=== PATIENT | female | born 1985 | race Caucasian/White ===

== ENCOUNTER 2019-08-15 17:54 | Emergency (ER) | payer OTHER ==
--- NOTE | 2019-08-15 17:57 | ED.ADGEN ---
Past History Past Medical History: Alcoholism, Anxiety Adult General Chief Complaint Chief Complaint ".. I need help.. I feel like I going to go into alcohol withdrawal. ... I was off alcohol.. after in pt. treatment program in [place].. but I had my closest friend in a MVA... and that got me so depressed.. then I started drinking may a liter of vodka a day.. I been try to cut down.. maybe down to 1/2 liter of vodka a day.. but I have started having shaking.. and this intractable vomiting.. so I increased my alcohol again... ".." I think I probably dehy drated... ".. " I don't want any in patient rehab... ".. HPI HPI Patient is a 33 year old female who presents with above hx and complaint of nausea and vomiting when she tries to reduce her alcohol intake. Pt. reports chronic usage of approximately 1 L of vodka a day. Patient states she is down to approximately 1/2 L of vodka today currently. Patient states that time she attempts to reduce intake further developed nausea and vomiting, feels shaky, and has anxiety attacks. Patient denies any history of use of other drugs. Patient does have a history of anxiety disorder and bipolar-like presentations. Patient denies any suicidal ideations. No homicidal ideations. Patient was in inpatient rehabilitation in [place] for 30 days which was helpful in getting off of alcohol. Patient relapsed after the of her friend in a motor vehicle accident.. Patient has had repeated episodes of nausea and vomiting today after attempting to reduce her alcohol. Patient has history of 2 para 2. Patient denies any trauma intake of bad food. No recent travel. Review of Systems Review of Systems Constitutional: Denies fever or chills [] Eyes: Denies change in visual acuity, redness, or eye pain [] HENT: Denies nasal congestion or sore throat [] Respiratory: Denies cough or shortness of breath [] Cardiovascular: No additional information not addressed in HPI [] GI: Complaints of generalized abdominal pain, nausea, vomiting,. Denies bloody stools or diarrhea [] : Denies dysuria or hematuria [] Musculoskeletal: Denies back pain or joint pain [] Integument: Denies rash or skin lesions [] Neurologic: Denies headache, focal weakness or sensory changes . Patient []complaints of shakes or tremors when she attempts at reducing alcohol. Very anxious Endocrine: Denies polyuria or polydipsia [] All other systems were reviewed and found to be within normal limits, except as documented in this note. Family History Family History Noncontributory Current Medications Current Medications Current Medications Medications (Trade) Dose Ordered Sig/Kuldip Start Time Stop Time Status Last Admin Dose Admin Famotidine (Pepcid Vial) 20 mg 1X ONCE 08/15/19 18:30 08/15/19 18:34 DC 08/15/19 19:10 20 MG Folic Acid (FOLIC ACID SYRINGE for ER) 5 mg STK-MED ONCE 08/15/19 19:08 08/15/19 19:08 DC Lactated Ringer's 1,000 ml @ 1,000 mls/hr Q1H 08/15/19 18:29 08/15/19 19:28 DC 08/15/19 20:05 1,000 MLS/HR Lorazepam (Ativan Inj) 2 mg 1X ONCE 08/15/19 20:00 08/15/19 20:01 DC 08/15/19 20:01 2 MG Multivitamins/ Minerals (Infuvite Adult) 10 ml STK-MED ONCE 08/15/19 19:08 08/15/19 19:08 DC Multivitamins/ Minerals 10 ml/ Folic Acid 1 mg/ Thiamine HCl 100 mg/Lactated Ringer's 1,011.2 ml @ 1,011.2 mls/hr 1X ONCE 08/15/19 18:30 08/15/19 19:29 DC 08/15/19 19:17 1,011.2 MLS/HR Ondansetron HCl (Zofran) 8 mg 1X ONCE 08/15/19 18:30 08/15/19 18:34 DC 08/15/19 19:10 8 MG Thiamine HCl (Thiamine Vial) 200 mg STK-MED ONCE 08/15/19 19:08 08/15/19 19:08 DC Allergies Allergies Allergies Coded Allergies Type Severity Reaction Last Updated Verified No Known Drug Allergies 08/15/19 No Physical Exam Physical Exam Constitutional: In acute emotional distress, intoxicated in appearance. [] HENT: Normocephalic, atraumatic, bilateral external ears normal, oropharynx moist, no oral exudates, nose normal. [] Eyes: PERRLA, EOMI, conjunctiva normal, no discharge. [] Neck: Normal range of motion, no tenderness, supple, no stridor. [] Cardiovascular: Tachycardia Heart rate regular rhythm, no murmur [] Lungs & Thorax: Bilateral breath sounds equal apex with few scattered wheezes auscultation [] Abdomen: Bowel sounds normal, soft, mild generalized abdomen tenderness, no masses, no pulsatile masses. [] Skin: Warm, dry, no erythema, no rash. [] Back: No tenderness, no CVA tenderness. [] Extremities: No tenderness, no cyanosis, no clubbing, ROM intact, no edema. [] Neurologic: Alert and oriented X 3, normal motor function, normal sensory function, no focal deficits noted. []Patient is ambulatory without problems. DTRs +2 patella and brachial. Psychologic: Affect very anxious, judgement normal, mood depressed but denies suicidal ideation. Current Patient Data Vital Signs Vital Signs Date Time Temp Pulse Resp B/P (MAP) Pulse Ox O2 Delivery O2 Flow Rate FiO2 08/15/19 18:21 98.7 116 26 96 Room Air Lab Results Laboratory Tests Test 08/15/19 17:10 08/15/19 18:10 08/15/19 18:54 Urine Collection Type Unknown Urine Color Yellow Urine Clarity Hazy Urine pH 5.5 Urine Specific [place] >=1.030 Urine Protein >100 mg/dl (NEG-TRACE) Urine Glucose (UA) Neg mg/dL (NEG) Urine Ketones (Stick) Neg mg/dL (NEG) Urine Blood Trace (NEG) Urine Nitrite Neg (NEG) Urine Bilirubin Neg (NEG) Urine Urobilinogen Dipstick 0.2 mg/dL (0.2 mg/dL) Urine Leukocyte Esterase Neg (NEG) Urine RBC Occ /HPF (0-2) Urine WBC Occ /HPF (0-4) Urine Squamous Epithelial Cells Mod /LPF Urine Bacteria 0 /HPF (0-FEW) Urine Mucus Mod /LPF Urine Opiates Screen Neg (NEG) Urine Methadone Screen Neg (NEG) Urine Barbiturates Neg (NEG) Urine Phencyclidine Screen Neg (NEG) Urine Amphetamine/Methamphetamine Neg (NEG) Urine Benzodiazepines Screen Neg (NEG) Urine Cocaine Screen Neg (NEG) Urine Cannabinoids Screen Neg (NEG) Urine Ethyl Alcohol Pos (NEG) Urine Test Negative (NEG) White Blood Count 5.8 x10^3/uL (4.0-11.0) Red Blood Count 5.03 x10^6/uL (3.50-5.40) Hemoglobin 15.9 g/dL (12.0-15.5) H Hematocrit 46.5 % (36.0-47.0) Mean Corpuscular Volume 93 fL (79-100) Mean Corpuscular Hemoglobin 32 pg (25-35) Mean Corpuscular Hemoglobin Concent 34 g/dL (31-37) Red Cell Distribution Width 13.1 % (11.5-14.5) Platelet Count 239 x10^3/uL (140-400) Neutrophils (%) (Auto) 64 % (31-73) Lymphocytes (%) (Auto) 29 % (24-48) Monocytes (%) (Auto) 7 % (0-9) Eosinophils (%) (Auto) 1 % (0-3) Basophils (%) (Auto) 1 % (0-3) Neutrophils # (Auto) 3.7 x10^3uL (1.8-7.7) Lymphocytes # (Auto) 1.7 x10^3/uL (1.0-4.8) Monocytes # (Auto) 0.4 x10^3/uL (0.0-1.1) Eosinophils # (Auto) 0.0 x10^3/uL (0.0-0.7) Basophils # (Auto) 0.0 x10^3/uL (0.0-0.2) Prothrombin Time 9.5 SEC (9.4-11.4) Prothrombin Time INR 0.9 (0.9-1.1) Activated Partial Thromboplast Time 26 SEC (23-33) Sodium Level 139 mmol/L (136-145) Potassium Level 4.1 mmol/L (3.5-5.1) Chloride Level 101 mmol/L (98-107) Carbon Dioxide Level 24 mmol/L (21-32) Anion Gap 14 (6-14) Blood Urea Nitrogen 7 mg/dL (7-20) Creatinine 0.6 mg/dL (0.6-1.0) Estimated GFR (Cockcroft-Gault) 115.1 Glucose Level 116 mg/dL (70-99) H Calcium Level 8.5 mg/dL (8.5-10.1) Magnesium Level 2.2 mg/dL (1.8-2.4) Total Bilirubin 0.3 mg/dL (0.2-1.0) Direct Bilirubin 0.1 mg/dL (0.0-0.2) Aspartate Amino Transferase (AST) 49 U/L (15-37) H Alanine Aminotransferase (ALT) 42 U/L (14-59) Alkaline Phosphatase 102 U/L (46-116) Creatine Kinase 181 U/L (26-192) Troponin I Quantitative < 0.017 ng/mL (0-0.055) Total Protein 8.8 g/dL (6.4-8.2) H Albumin 4.0 g/dL (3.4-5.0) Amylase Level 38 U/L (25-115) Lipase 192 U/L (73-393) Ethyl Alcohol Level 328 mg/dL (0-10) H EKG EKG My interpretation of EKG shows a sinus rhythm at 85 beats per minute. Some mild left axis deviation. No findings acute STEMI of contralateral changes..[] Radiology/Procedures Radiology/Procedures [][place] [address] IMAGING REPORT Signed PATIENT: DIMITRY MILLARD ACCOUNT: [id number] : 1985 LOCATION: ER AGE: 33 SEX: F EXAM STATUS: REG ER ORD. PHYSICIAN: SERGO THOMPSON MD REASON: n/v, DUE TO ALCOHOLISM, WITHDRAWLS, TREMORS. PROCEDURE: ACUTE ABDOMEN SERIES Exam: Acute abdominal series INDICATION: Nausea and vomiting TECHNIQUE: Frontal view of the chest with upright and supine views of the abdomen Comparisons: None FINDINGS: The cardiomediastinal silhouette and pulmonary vessels are within normal limits. The lung and pleural spaces are clear. Air and stool are noted throughout the colon to level the rectum in a nonobstructive bowel gas pattern. There are a few air-filled nondilated loops of small bowel also noted. No free air. No suspicious masses or calcifications. Visualized osseous structures are unremarkable. IMPRESSION: 1. No acute cardiopulmonary process. 2. Nonobstructive nonspecific bowel gas pattern. Electronically signed by: Franklyn Vizcarra MD (08/15/2019 8:52 PM) [facility] DICTATED AND SIGNED BY: FRANKLYN VIZCARRA MD DATE: 08/15/192051 CC: SERGO THOMPSON MD; PCP,NO ~ Course & Med Decision Making Course & Med Decision Making Pertinent Labs and Imaging studies reviewed. (See chart for details) Patient avoid excessive alcohol intake. Patient take multivitamin. Patient follow-up counseling center this morning. Patient return if any concerns. Patient follow-up primary care. Patient take Zantac 150 mg twice day for gastritis. Must follow-up. [] Final Impression Final Impression 1. Hx of Alcohol Abuse/ Dependence - 2. Nausea and Vomiting[] 3. Anxiety Disorder 4. Depression 5. ETOH = 328 tonight Dragon Disclaimer Dragon Disclaimer This electronic medical record was generated, in whole or in part, using a voice recognition dictation system. Dragon Disclaimer This chart was dictated in whole or in part using Voice Recognition software in a busy, high-work load, and often noisy Emergency Department environment. It may contain unintended and wholly unrecognized errors or omissions. SERGO THOMPSON MD Aug 15, 2019 17:57
[2019-08-15 18:21] VITALS: BP 163/126
[2019-08-15] MEDS ORDERED: IV RINGERS SOLUTION,LACTATED 1,000 ML IV SCH (18:29)
[2019-08-15] MEDS ORDERED: ONDANSETRON PF 4 MG/2 ML VIAL. IVP ONE (18:30)
[2019-08-15] MEDS ORDERED: FAMOTIDINE 20 MG/2 ML VIAL IVP ONE (18:30)
[2019-08-15] MEDS ORDERED: MVI, ADULT NO.4 WITH VIT K 10 ML, FOLIC ACID SYRINGE for ER 1 MG, THIAMINE INJ 100 MG i... IV ONE ×4 (18:30)
[2019-08-15 18:37] LABS: AMPHETAMINE/METHAMPHETAMINE NEG (NEG); BARBITURATES NEG (NEG); BENZODIAZEPINES NEG (NEG); CANNABINOIDS NEG (NEG); COCAINE NEG (NEG); METHADONE NEG (NEG); OPIATES NEG (NEG); PHENCYCLIDINE NEG (NEG)
[2019-08-15 18:39] LABS: U PREG PATIENT NEGATIVE (NEG)
[2019-08-15 18:42] LABS: COLOR,URINE YELLOW
[2019-08-15 18:43] LABS: BACTERIA,URINE 0 /HPF (0-FEW); BILIRUBIN,URINE NEG (NEG); CLARITY,URINE HAZY; GLUCOSE,URINE NEG (NEG); NITRITE,URINE NEG (NEG); RBC,URINE OCC /HPF (0-2); SQUAMOUS EPITHELIAL CELL,UR MOD /LPF; UROBILINOGEN,URINE 0.2 mg/dL (0.2 mg/dL); WBC,URINE OCC /HPF (0-4)
[2019-08-15] MEDS ORDERED: MVI, ADULT NO.4 WITH VIT K 10 ML VIAL IV ONE (19:08)
[2019-08-15] MEDS ORDERED: THIAMINE 200 MG/2 ML VIAL. IV ONE (19:08)
[2019-08-15] MEDS ORDERED: FOLIC ACID 5 MG/ML SYRINGE for ER IV ONE (19:08)
[2019-08-15 19:22] LABS: BASO % 1 % (0-3); EOS % 1 % (0-3); HEMATOCRIT 46.5 % (36.0-47.0); HEMOGLOBIN 15.9 g/dL (12.0-15.5); LYMPH # 1.7 x10^3/uL (1.0-4.8); LYMPH % 29 % (24-48); MEAN CORPUSCULAR HEMOGLOBIN 32 pg (25-35); MEAN CORPUSCULAR HGB CONC 34 g/dL (31-37); MEAN CORPUSCULAR VOLUME 93 fL (79-100); MONO # 0.4 x10^3/uL (0.0-1.1); MONO % 7 % (0-9); NEUT # 3.7 x10^3uL (1.8-7.7); NEUT % 64 % (31-73); PLATELET COUNT 239 x10^3/uL (140-400); RED BLOOD COUNT 5.03 x10^6/uL (3.50-5.40); RED CELL DISTRIBUTION WIDTH 13.1 % (11.5-14.5); WHITE BLOOD COUNT 5.8 x10^3/uL (4.0-11.0)
[2019-08-15 19:31] LABS: CALCIUM 8.5 mg/dL (8.5-10.1); CREATININE 0.6 mg/dL (0.6-1.0); DIRECT BILIRUBIN 0.1 mg/dL (0.0-0.2); GFR 115.1; POTASSIUM 4.1 mmol/L (3.5-5.1); TOTAL BILIRUBIN 0.3 mg/dL (0.2-1.0); TOTAL PROTEIN 8.8 g/dL (6.4-8.2)
--- NOTE | 2019-08-15 20:55 | RAD ---
Exam: Acute abdominal series INDICATION: Nausea and vomiting TECHNIQUE: Frontal view of the chest with upright and supine views of the abdomen Comparisons: None FINDINGS: The cardiomediastinal silhouette and pulmonary vessels are within normal limits. The lung and pleural spaces are clear. Air and stool are noted throughout the colon to level the rectum in a nonobstructive bowel gas pattern. There are a few air-filled nondilated loops of small bowel also noted. No free air. No suspicious masses or calcifications. Visualized osseous structures are unremarkable. IMPRESSION: 1. No acute cardiopulmonary process. 2. Nonobstructive nonspecific bowel gas pattern. Electronically signed by: Franklyn Hancock MD (08/15/2019 8:52 PM) [facility]
--- NOTE | 2019-08-15 21:16 | EKG ---
[address] [address] Test Date: 2019-08-15 Test Time: 20:57:25 Pat Name: DIMITRY MILLARD Department: Room: Gender: F Sales Ambassador: MELCHOR : 1985 Requested By: SERGO THOMPSON Order Number: [id number] Reading MD: Measurements Intervals [place] Rate: 85 P: 0 MO: 138 QRS: -66 QRSD: 98 T: 14 QT: 390 QTc: 464 Interpretive Statements SINUS RHYTHM ABNORMAL LEFT AXIS DEVIATION LOW LIMB LEAD VOLTAGE ABNORMAL ECG RI6.01 No previous ECG available for comparison
[2019-08-15] MEDS ORDERED: RANI-376 PO (22:36)
[2019-08-15] MEDS ORDERED: ONDA8TAB9 PO (22:36)
== END 2019-08-15 23:20 | disposition home or self-care (01) ==
LOC: ER 17:54
DX: F41.9 Anxiety disorder, unspecified (principal); R11.2 Nausea with vomiting, unspecified; F10.20 Alcohol dependence, uncomplicated; F32.9 Major depressive disorder, single episode, unspecified; Y90.8 Blood alcohol level of 240 mg/100 ml or more
CPT/HCPCS: 36415; 74022; 80048; 80076; 80307; 81001; 81025; 82150; 82550; 83690; 83735; 84484; 85025; 85610; 85730; 86705; 86709; 86803; 87340; 93005; 96365; 96375; 99285; G0480; J2060; J2405; J3490; J7120

== ENCOUNTER 2019-09-26 16:45 | Emergency (ER) | payer OTHER ==
[~2019-09-26] VITALS: Ht 170.2 cm; Wt 74.8 kg
[~2019-09-26 16:45] MED LIST: ONDA8TAB9 PO; RANI-376 PO
[2019-09-26 16:58] VITALS: BP 135/45
[2019-09-26] MEDS ORDERED: HYDROcodone/APAP 5/325MG 1 TAB TABLET PO ONE (17:00)
--- NOTE | 2019-09-26 17:03 | PHYS DOC ---
Past History Past Medical History: Alcoholism, Anxiety (REX LINCOLN DO) Past Surgical History: Appendectomy (REX LINCOLN DO) Smoking: Non-smoker Alcohol Use: Heavy Drug Use: None (REX LINCOLN DO) Adult General Chief Complaint Chief Complaint: LOWEREXTREMITY INJURY HPI HPI Patient is a 33-year-old female presents complaining of right lower leg/ankle pain. Proximally an hour prior to arrival, patient was walking in snow, slipped sustaining an inversion mechanism injury of her ankle. She has been unable to walk on the leg since that time. No relief with ibuprofen. There is swelling present in the lower leg. No previous ankle injury. She did not hit her head. There is no numbness or tingling. Symptoms are moderate to severe in intensity. Increased pain with movement.[] (REX LINCOLN DO) Review of Systems Review of Systems Constitutional: Denies fever or chills [] Eyes: Denies change in visual acuity, redness, or eye pain [] HENT: Denies nasal congestion or sore throat [] Respiratory: Denies cough or shortness of breath [] Cardiovascular: No chest pain or palpitations[] GI: Denies abdominal pain, nausea, vomiting, bloody stools or diarrhea [] : Denies dysuria or hematuria [] Musculoskeletal: Denies back pain on a see history of present illness[] Integument: Denies rash or skin lesions [] Neurologic: Denies headache, focal weakness or sensory changes [] Endocrine: Denies polyuria or polydipsia [] All other systems were reviewed and found to be within normal limits, except as documented in this note. (REX LINCOLN DO) Allergies Allergies Allergies Coded Allergies Type Severity Reaction Last Updated Verified No Known Drug Allergies 08/15/19 No (REX LINCOLN DO) Physical Exam Physical Exam Constitutional: Well developed, well nourished, mild discomfort, non-toxic appearance. [] HENT: Normocephalic, atraumatic, bilateral external ears normal, oropharynx moist, no oral exudates, nose normal. [] Eyes: PERRLA, EOMI, conjunctiva normal, no discharge. [] Neck: Normal range of motion, no tenderness, supple, no stridor. [] Cardiovascular:Heart rate regular rhythm, no murmur [] Lungs & Thorax: Bilateral breath sounds clear to auscultation [] Abdomen: Bowel sounds normal, soft, no tenderness, no masses, no pulsatile m asses. [] Skin: Warm, dry, no erythema, no rash. [] Back: No tenderness, no CVA tenderness. [] Extremities: Right lower leg and ankle has swelling towards the medial portion of the lower leg. There is tenderness over the swelling. No bruising is present. She is distally neurovascularly intact. No knee tenderness. A joint above and a joined below were evaluated and were normal. The other 3 extremities show: No tenderness, no cyanosis, no clubbing, ROM intact, no edema. [] Neurologic: Alert and oriented X 3, normal motor function, normal sensory fu nction, no focal deficits noted. [] Psychologic: Affect normal, judgement normal, mood normal. [] (REX LINCOLN DO) EKG EKG [] (REX LINCOLN DO) Radiology/Procedures Radiology/Procedures PROCEDURE: ANKLE RIGHT 3V INDICATION: Trauma COMPARISON: None. IMPRESSION: Right ankle: 3 views obtained. Obliquely oriented fracture of the distal tibial diaphysis with approximately 4 mm of lateral displacement. Right lower le views obtained. The above-described obliquely oriented displaced distal tibia fracture seen on this examination as well. A definite additional fracture is not seen.[] (REX LINCOLN DO) Course & Med Decision Making Course & Med Decision Making Pertinent Labs and Imaging studies reviewed. (See chart for details) Urgency department course: Patient arrived, was placed in bed, and tolerated exam well. She was transported to and from radiology with any complications. Imaging findings were discussed with the patient. She was given pain medicine. Consultation was made initially with orthopedic surgery, Dr. Walker who recommended the patient be transferred to [place] for ORIF in the morning. Consultation was made with the hospitalist service for admission. Dr. Atkinson graciously admitted the patient. Plan was discussed with patient and family who voiced understanding. She was transferred in improved condition. A splint was applied for comfort and immobilization. She was distally neurovascularly intact after splint application. Medical decision making: Patient with a closed fracture of her distal tibia. No evidence of an open fracture. No evidence of neurologic or vascular compromise. She is being transferred for higher level orthopedic care.[] (REX LINCOLN DO) Course & Med Decision Making Did not see this pt.. See Dr. Lincoln chart for information. Was transfer at shift change. (SERGO THOMPSON MD) Dragon Disclaimer Dragon Disclaimer This electronic medical record was generated, in whole or in part, using a voice recognition dictation system. (REX LINCOLN DO) Departure Departure: Impression: Primary Impression: Closed right tibial fracture Disposition: 05 TRANSFER OTHER Condition: IMPROVED Referrals: PCP,NO (PCP) Gerardo Disclaimer This chart was dictated in whole or in part using Voice Recognition software in a busy, high-work load, and often noisy Emergency Department environment. It may contain unintended and wholly unrecognized errors or omissions. (SERGO THOMPSON MD) REX LINCOLN DO Sep 26, 2019 17:03 SERGO THOMPSON MD Sep 27, 2019 00:09
--- NOTE | 2019-09-26 17:48 | RAD ---
INDICATION: Trauma COMPARISON: None. IMPRESSION: Right ankle: 3 views obtained. Obliquely oriented fracture of the distal tibial diaphysis with approximately 4 mm of lateral displacement. Right lower le views obtained. The above-described obliquely oriented displaced distal tibia fracture seen on this examination as well. A definite additional fracture is not seen. Electronically signed by: Andrea Keene MD (09/26/2019 5:45 PM) [facility]
--- NOTE | 2019-09-26 17:48 | RAD ---
INDICATION: Trauma COMPARISON: None. IMPRESSION: Right ankle: 3 views obtained. Obliquely oriented fracture of the distal tibial diaphysis with approximately 4 mm of lateral displacement. Right lower le views obtained. The above-described obliquely oriented displaced distal tibia fracture seen on this examination as well. A definite additional fracture is not seen. Electronically signed by: Andrea Keene MD (09/26/2019 5:45 PM) [facility]
== END 2019-09-26 18:34 | disposition short-term general hospital (02) ==
LOC: ER 16:45
DX: S82.301A Unspecified fracture of lower end of right tibia, initial encounter for closed fracture (principal); F10.20 Alcohol dependence, uncomplicated; F41.9 Anxiety disorder, unspecified; Y90.9 Presence of alcohol in blood, level not specified; X50.9XXA Other and unspecified overexertion or strenuous movements or postures, initial encounter; Y93.01 Activity, walking, marching and hiking; Y92.89 Other specified places as the place of occurrence of the external cause; Y99.8 Other external cause status
CPT/HCPCS: 29515; 73590; 73610; 99285

== ENCOUNTER → 2019-12-27 | Outpatient (CLI) | payer OTHER ==
--- NOTE | 2019-12-27 09:28 | RAD ---
EXAM: Obstetrics sonogram. HISTORY: Size and dates assessment. TECHNIQUE: Sonographic imaging of a gravid uterus was performed. COMPARISON: 09/28/2019. FINDINGS: There is a single intrauterine fetus in cephalic presentation with a normal heart rate of 155 bpm. There is a posterior placenta without evidence of placenta previa. The amniotic fluid index is normal at 13.0 cm. The cervix is not well seen but appears normal in length and closed, measuring 3.4 cm. The biparietal diameter is 3.8 cm, corresponding with 17 weeks and 4 days. The head circumference is 14.2 cm, corresponding with 17 weeks and 4 days. The abdominal circumference is 11.7 cm, corresponding with 17 weeks and 3 days. The femoral length is 2.4 cm, corresponding with 17 weeks and 2 days. The estimated gestational age based on combined ultrasound measurements is 17 weeks and 3 days and the estimated due date is 06/02/2020. The estimated weight is 192 g. The estimated gestational age based on LMP is 17 weeks and 6 days. The facial profile, heart and kidneys are not well assessed due to early gestational age. There is a three-vessel umbilical cord with normal insertion. The stomach, brain, spine and extremities are unremarkable. IMPRESSION: 1. Single intrauterine fetus with a normal heart rate and gestational age based on ultrasound measurements of 17 weeks and 3 days. The estimated gestational age based on LMP is 17 weeks and 6 days. 2. Suboptimal evaluation of the facial profile, heart and kidneys due to early gestational age. Follow-up evaluation at approximately 20 weeks gestation can be performed to complete an otherwise unremarkable anatomy survey. Electronically signed by: Mae Toure MD (12/27/2019 9:25 AM) [id number]
== END ==
LOC: US 07:41
PROVIDERS: ATTEND Obstetrics & Gynecology
DX: O26.842 Uterine size-date discrepancy, second trimester (principal); Z3A.17 17 weeks gestation of pregnancy
CPT/HCPCS: 76805

== ENCOUNTER 2021-04-19 07:29 | Emergency (ER) | payer OTHER ==
[~2021-04-19] VITALS: Ht 170.2 cm; Wt 70.4 kg
[2021-04-19 07:34] VITALS: BP 134/94
[2021-04-19] MEDS ORDERED: IV NORMAL SALINE 1,000ML 1,000 ML IV ONE (08:00)
[2021-04-19 08:31] LABS: BASO % 1 % (0-3); EOS # 0.2 x10^3/uL (0.0-0.7); EOS % 4 % (0-3); HEMOGLOBIN 15.3 g/dL (12.0-15.5); LYMPH # 1.4 x10^3/uL (1.0-4.8); LYMPH % 20 % (24-48); MEAN CORPUSCULAR HEMOGLOBIN 33 pg (25-35); MEAN CORPUSCULAR HGB CONC 35 g/dL (31-37); MEAN CORPUSCULAR VOLUME 94 fL (79-100); MONO # 0.7 x10^3/uL (0.0-1.1); MONO % 11 % (0-9); NEUT # 4.4 x10^3uL (1.8-7.7); NEUT % 65 % (31-73); PLATELET COUNT 278 x10^3/uL (140-400); RED BLOOD COUNT 4.69 x10^6/uL (3.50-5.40); WHITE BLOOD COUNT 6.9 x10^3/uL (4.0-11.0)
[2021-04-19 08:37] LABS: BARBITURATES NEG (NEG); BENZODIAZEPINES NEG (NEG); CANNABINOIDS NEG (NEG); COCAINE NEG (NEG); METHADONE NEG (NEG); OPIATES NEG (NEG); PHENCYCLIDINE NEG (NEG)
[2021-04-19 08:39] LABS: CALCIUM 8.8 mg/dL (8.5-10.1); CREATININE 1.1 mg/dL (0.6-1.0); GFR 56.5; POTASSIUM 3.3 mmol/L (3.5-5.1)
[2021-04-19 08:44] LABS: BILIRUBIN,URINE SMALL (NEG); CLARITY,URINE CLEAR; COLOR,URINE YELLOW; GLUCOSE,URINE NEG (NEG); NITRITE,URINE POS (NEG); UROBILINOGEN,URINE 0.2 mg/dL (0.2 mg/dL)
[2021-04-19] MEDS ORDERED: IOHEXOL 300 MG/ML 50 ML VIAL. IV ONE (08:45)
[2021-04-19 08:46] LABS: BACTERIA,URINE MANY /HPF (0-FEW); RBC,URINE OCC /HPF (0-2); SQUAMOUS EPITHELIAL CELL,UR MANY /LPF
[2021-04-19 08:46] LABS: ALBUMIN 3.5 g/dL (3.4-5.0); ALBUMIN/GLOBULIN RATIO 1.1 (1.0-1.7); TOTAL BILIRUBIN 0.7 mg/dL (0.2-1.0); TOTAL PROTEIN 6.8 g/dL (6.4-8.2)
[2021-04-19 08:50] LABS: AMPHETAMINE/METHAMPHETAMINE NEG (NEG)
[2021-04-19] MEDS ORDERED: CONTRAST GIVEN. MC PRN (09:00)
--- NOTE | 2021-04-19 09:13 | RAD ---
Exam Date: 04/19/2021 8:[address] HEAD WITHOUT AND WITH IV CONTRAST Indication: Reason: leg weakness, bilateral leg numbness/tingling x 2 days / Spl. Instructions: / Hi story: . TECHNIQUE: Head CT was performed without and with intravenous contrast. One or more of the followin g dose reduction techniques were utilized: *Automated exposure control (AEC) *Adjustment of mA and/or kV according to patient size *Use of iterative reconstruction technique *CT scan done according to ALARA, or ALARA/IMAGE GENTLY FINDINGS: The ventricles and sulci are normal for the patient's stated age. There is no evidence of acute int racranial hemorrhage, extra-axial collection, mass effect, midline shift, or acute territorial infarc t. No lesion of the skull base or the calvarium is seen. The visualized paranasal sinuses, mastoid ai r cells and orbits are normal in appearance. No abnormal contrast enhancement is seen. IMPRESSION: No evidence for acute intracranial abnormality. Electronically signed by: Arvind Diehl MD (04/19/2021 9:10 AM) [id number]
[2021-04-19] MEDS ORDERED: NITR100C62 PO (09:21)
--- NOTE | 2021-04-19 09:21 | PHYS DOC ---
Past History Past Medical History: Alcoholism Past Surgical History: Smoking: Non-smoker Alcohol Use: Occasionally Drug Use: None General Adult EDM: Chief Complaint: LOWER EXT PAIN HPI: HPI: 35-year-old female presents with bilateral leg "heaviness and tingling". She feels like her legs are heavy and that she could fall over. She feels like she should hold onto something and lean against the wall. She is able to walk. This all started this morning and she has never had symptoms like this before. She is also had some tingling in her hands but this is intermittent. The patient is on an antidepressant, low-dose Zoloft. She has been taking this as prescribed. Patient denies any falls or trauma. She cannot think of any reason why her legs would feel different. No family history of MS. She has no other significant history. Review of Systems: Review of Systems: Constitutional: Denies fever or chills Eyes: Denies change in visual acuity HENT: Denies nasal congestion or sore throat Respiratory: Denies cough or shortness of breath Cardiovascular: Denies chest pain or edema GI: Denies abdominal pain, nausea, vomiting, bloody stools or diarrhea : Denies dysuria Musculoskeletal: Bilateral leg weakness Integument: Denies rash Neurologic: Denies headache, focal weakness or sensory changes Endocrine: Denies polyuria or polydipsia Lymphatic: Denies swollen glands Psychiatric: Denies depression or anxiety Current Medications: Current Meds: Current Medications Medications (Trade) Dose Ordered Sig/Kuldip Start Time Stop Time Status Last Admin Dose Admin Info (Do NOT chart on this entry -- for MONITORING) 1 each PRN DAILY PRN 04/19/21 09:00 04/21/21 08:59 Iohexol (Omnipaque 300 Mg/ml) 50 ml 1X ONCE 04/19/21 08:45 04/19/21 08:50 DC 04/19/21 08:52 50 ML Sodium Chloride 1,000 ml @ 1,000 mls/hr 1X ONCE 04/19/21 08:00 04/19/21 08:59 DC 04/19/21 08:03 1,000 MLS/HR Allergies: Allergies: Allergies Coded Allergies Type Severity Reaction Last Updated Verified No Known Drug Allergies 08/15/19 No Physical Exam: PE: Constitutional: Well developed, well nourished, no acute distress, non-toxic appearance. [] HENT: Normocephalic, atraumatic, bilateral external ears normal, oropharynx moist, no oral exudates, nose normal. [] Eyes: PERRLA, EOMI, conjunctiva normal, no discharge. [] Neck: Normal range of motion, no tenderness, supple, no stridor. [] Cardiovascular: Heart rate regular rhythm, no murmur [] Lungs & Thorax: Bilateral breath sounds clear to auscultation [] Abdomen: Bowel sounds normal, soft, no tenderness, no masses, no pulsatile masses. [] Skin: Warm, dry, no erythema, no rash. [] Back: No tenderness, no CVA tenderness. [] Extremities: No tenderness, no cyanosis, no clubbing, ROM intact, no edema. [] Neurologic: Alert and oriented X 3, normal motor function, normal sensory function, no focal deficits noted. [] Psychologic: Affect normal, judgement normal, mood concerned. [] Current Patient Data: Labs: Laboratory Tests Test 04/19/21 07:58 04/19/21 08:00 04/19/21 08:12 White Blood Count 6.9 x10^3/uL (4.0-11.0) Red Blood Count 4.69 x10^6/uL (3.50-5.40) Hemoglobin 15.3 g/dL (12.0-15.5) Hematocrit 44.0 % (36.0-47.0) Mean Corpuscular Volume 94 fL (79-100) Mean Corpuscular Hemoglobin 33 pg (25-35) Mean Corpuscular Hemoglobin Concent 35 g/dL (31-37) Red Cell Distribution Width 14.0 % (11.5-14.5) Platelet Count 278 x10^3/uL (140-400) Neutrophils (%) (Auto) 65 % (31-73) Lymphocytes (%) (Auto) 20 % (24-48) L Monocytes (%) (Auto) 11 % (0-9) H Eosinophils (%) (Auto) 4 % (0-3) H Basophils (%) (Auto) 1 % (0-3) Neutrophils # (Auto) 4.4 x10^3uL (1.8-7.7) Lymphocytes # (Auto) 1.4 x10^3/uL (1.0-4.8) Monocytes # (Auto) 0.7 x10^3/uL (0.0-1.1) Eosinophils # (Auto) 0.2 x10^3/uL (0.0-0.7) Basophils # (Auto) 0.0 x10^3/uL (0.0-0.2) Sodium Level 142 mmol/L (136-145) Potassium Level 3.3 mmol/L (3.5-5.1) L Chloride Level 103 mmol/L (98-107) Carbon Dioxide Level 28 mmol/L (21-32) Anion Gap 11 (6-14) Blood Urea Nitrogen 4 mg/dL (7-20) L Creatinine 1.1 mg/dL (0.6-1.0) H Estimated GFR (Cockcroft-Gault) 56.5 BUN/Creatinine Ratio 4 (6-20) L Glucose Level 110 mg/dL (70-99) H Calcium Level 8.8 mg/dL (8.5-10.1) Total Bilirubin 0.7 mg/dL (0.2-1.0) Aspartate Amino Transferase (AST) 80 U/L (15-37) H Alanine Aminotransferase (ALT) 40 U/L (14-59) Alkaline Phosphatase 112 U/L (46-116) Total Protein 6.8 g/dL (6.4-8.2) Albumin 3.5 g/dL (3.4-5.0) Albumin/Globulin Ratio 1.1 (1.0-1.7) Urine Collection Type Unknown Urine Color Yellow Urine Clarity Clear Urine pH 7.0 Urine Specific [place] 1.025 Urine Protein 100 mg/dl (NEG-TRACE) Urine Glucose (UA) Neg mg/dL (NEG) Urine Ketones (Stick) Trace mg/dL (NEG) Urine Blood Neg (NEG) Urine Nitrite Pos (NEG) Urine Bilirubin Small (NEG) Urine Urobilinogen Dipstick 0.2 mg/dL (0.2 mg/dL) Urine Leukocyte Esterase Neg (NEG) Urine RBC Occ /HPF (0-2) Urine WBC 1-4 /HPF (0-4) Urine Squamous Epithelial Cells Many /LPF Urine Bacteria Many /HPF (0-FEW) Urine Mucus Mod /LPF Urine Opiates Screen Neg (NEG) Urine Methadone Screen Neg (NEG) Urine Barbiturates Neg (NEG) Urine Phencyclidine Screen Neg (NEG) Urine Amphetamine/Methamphetamine Neg (NEG) Urine Benzodiazepines Screen Neg (NEG) Urine Cocaine Screen Neg (NEG) Urine Cannabinoids Screen Neg (NEG) Urine Ethyl Alcohol Neg (NEG) POC Urine HCG, Qualitative hcg negative (Negative) Vital Signs: Vital Signs Date Time Temp Pulse Resp B/P (MAP) Pulse Ox O2 Delivery O2 Flow Rate FiO2 04/19/21 07:34 97.9 104 16 134/94 96 EKG: EKG: [] Radiology/Procedures: Radiology/Procedures: [] Heart Score: C/O Chest Pain: N/A Risk Factors: Risk Factors: DM, Current or recent (<one month) smoker, HTN, HLP, family history of CAD, obesity. Risk Scores: Score 0 - 3: 2.5% MACE over next 6 weeks - Discharge Home Score 4 - 6: 20.3% MACE over next 6 weeks - Admit for Clinical Observation Score 7 - 10: 72.7% MACE over next 6 weeks - Early Invasive Strategies Course & Med Decision Making: Course & Med Decision Making Pertinent Labs and Imaging studies reviewed. (See chart for details) The patient's labs are unremarkable. Her urine drug screen is negative. Her urinalysis is positive for infection. I will treat her with Macrobid for [address] with and without contrast does not show any acute findings. I do know if the UTI is causing these symptoms. I will treat this and see if it improves her condition. I advised the patient that if this does not get better she should follow-up with her primary care physician and consider neurology consult. She is stable for discharge at this time. [] Gerardo Disclaimer: Gerardo Disclaimer: This electronic medical record was generated, in whole or in part, using a voice recognition dictation system. Departure Departure: Impression: Primary Impression: UTI (urinary tract infection) Qualified Codes: N30.00 - Acute cystitis without hematuria Additional Impression: Lower extremity weakness Qualified Codes: R29.898 - Other symptoms and signs involving the musculoskeletal system Disposition: HOME / SELF CARE / HOMELESS Condition: STABLE Referrals: PCP,NO (PCP) Patient Instructions: Urinary Tract Infection, [id number]-[id number], Weakness, Jysh-bf-[id number] Scripts Nitrofurantoin Monohyd/M-Cryst (MACROBID 100 MG CAPSULE) 100 Mg Capsule 1 CAP PO BID for UTI for 5 Days, #10 CAP 0 Refills Prov: SRI HERRERA DO 04/19/21 SRI HERRERA DO Apr 19, 2021 09:21
[2021-04-19] MEDS ORDERED: POTASSIUM CHLORIDE 20 MEQ TABLET.ER. PO ONE ×2 (09:30→09:36)
== END 2021-04-19 09:42 | disposition home or self-care (01) ==
LOC: ER 07:29
DX: N30.00 Acute cystitis without hematuria (principal); R29.898 Other symptoms and signs involving the musculoskeletal system; F10.20 Alcohol dependence, uncomplicated; Z98.890 Other specified postprocedural states; Y90.9 Presence of alcohol in blood, level not specified
CPT/HCPCS: 36415; 70470; 80053; 80307; 81001; 81025; 85025; 87086; 96374; 99284; J7030; Q9967

== ENCOUNTER 2021-05-18 20:00 | Emergency (ER) | payer OTHER ==
[~2021-05-18] VITALS: Ht 170.2 cm; Wt 70.4 kg
[~2021-05-18 20:00] MED LIST changes: +NITR100C62 PO
--- NOTE | 2021-05-18 20:12 | PHYS DOC ---
Past History Past Medical History: Alcoholism Past Surgical History: Smoking: Non-smoker Alcohol Use: Occasionally Drug Use: None General Adult HPI: HPI: ".. I am just so weak.. I was at for maybe two weeks .. while they tired to figure it out... they thought maybe I had Guillian-Marina Syndrome.. but everything was non conclusive... .. but now I tested + for COVID on Fri.... I just feel really tire, weak, short of breath.. dizzy. not right in my head. .." " I feel like my feet and legs are asleep... like when you sit in a chair too long... " Patient is a 35 year old FEMALE who presents with generalized weakness, bilateral leg heaviness, tingling, fatigue, dizzy, burning, tingly feet , and now dyspnea. Patient had a similar presentation to the emergency department on 04/19/2021. Patient presents today with exacerbation of the symptoms on 04/19/2021. Patient reports had a evaluation at and felt she had developed Guillan - Marina possibility. Patient does have past history of heavy alcohol use. No history of recent trauma. No history immunosuppression. No history of recent travel. Symptoms have been somewhat waxing and waning the last month. There is some association of symptoms be worse when it is hot. Patient is unsure of the work-up she had at . Patient does states she was recently diagnosed positive for Covid on Friday. Patient has never received any recent vaccinations. Patient has somewhat a poor historian and appears frustrated she has not received a confirmed diagnosis or treatment has been effective. Patient does states she received some gammaglobulins while at but they said it may take weeks for them to work.. Review of Systems: Review of Systems: Constitutional: History of subjective fever or chills Eyes: Denies change in visual acuity HENT: Denies nasal congestion or sore throat Respiratory: Denies cough or shortness of breath Cardiovascular: Denies chest pain or edema GI: Denies abdominal pain, nausea, vomiting, bloody stools or diarrhea : Denies dysuria Musculoskeletal: Complains of generalized weakness Integument: Denies rash Neurologic: Denies headache, focal weakness. Complains of generalized weakness and tingling burning sensation in feet Endocrine: Denies polyuria or polydipsia Lymphatic: Denies swollen glands Psychiatric: Denies depression or anxiety Family History: Family History: Noncontributory Current Medications: Current Meds: See nursing for home meds Allergies: Allergies: Allergies Coded Allergies Type Severity Reaction Last Updated Verified No Known Drug Allergies 08/15/19 No Physical Exam: PE: Constitutional: Mild to moderate distress, non-toxic appearance. [] HENT: Normocephalic, atraumatic, bilateral external ears normal, oropharynx moist, no oral exudates, nose normal. [] Eyes: PERRLA, EOMI, conjunctiva normal, no discharge. [] Neck: Normal range of motion, no tenderness, supple, no stridor. [] Cardiovascular:Heart rate regular rhythm, no murmur [] Lungs & Thorax: Bilateral breath sounds to apex with few scattered wheezes auscultation [] Abdomen: Bowel sounds normal, soft, no tenderness, no masses, no pulsatile jatin s. [] Skin: Warm, dry, no erythema, no rash. [] Back: No tenderness, no CVA tenderness. [] Extremities: Tenderness in feet, planes of leg weakness,, no cyanosis, no clubbing, ROM intact, no edema. [] Neurologic: Alert and oriented X 3, moves all extremities on request however reports marked weakness in bilateral lower legs and complaints of burning feet, no focal deficits noted. DTRs +2 patella and brachial Psychologic: Affect anxious, judgement normal, mood depressed. EKG: EKG: My interpretation EKG shows a sinus rhythm at 73 bpm. There is no acute morphology findings. The time of EKG was 2048 hrs. [] Radiology/Procedures: Radiology/Procedures: [][address] [address] IMAGING REPORT Signed PATIENT: DIMITRY MILLARD ACCOUNT: [id number] : 1985 LOCATION: ER AGE: 35 SEX: F EXAM STATUS: REG ER ORD. PHYSICIAN: SERGO THOMPSON MD REASON: FACIAL AND LEG WEAKNESS, CONFUSION PROCEDURE: CT HEAD WO CONTRAST EXAM: CT HEAD WITHOUT CONTRAST. HISTORY: Facial and leg weakness, altered mental status. TECHNIQUE: Computed tomography of the head was performed without intravenous contrast. One or more of the following individualized dose reduction techniques were utilized for this examination: 1. Automated exposure control. 2. Adjustment of the mA and/or kV according to patient size. 3. Use of iterative reconstruction technique. COMPARISON: 05/01/2021. FINDINGS: There is no intracranial hemorrhage. Winkler-white differentiation is preserved. The ventricles are normal in size and position. There are air-fluid levels throughout the visualized paranasal sinuses. The orbits are unremarkable. The temporal bones are unremarkable. The calvarium reveals no suspicious lesions. IMPRESSION: 1. No acute intracranial findings. 2. Diffuse acute appearing sinus disease. Electronically signed by: Josiah Lambert MD (05/18/2021 11:55 PM) [facility] DICTATED AND SIGNED BY: ELLI LAMBERT MD DATE: 05/18/21 3241 CC: SERGO THOMPSON MD; NON,STAFF ~[facility] [address] [place] [address] IMAGING REPORT Signed PATIENT: DIMITRY MILLARD ACCOUNT: [id number] : 1985 LOCATION: ER AGE: 35 SEX: F EXAM STATUS: REG ER ORD. PHYSICIAN: SERGO THOMPSON MD REASON: cp PROCEDURE: CHEST PA & LATERAL INDICATION: Reason: cp / Spl. Instructions: / History: COMPARISON: None. FINDINGS: 2 view of chest obtained. Cardiac silhouette is unremarkable. Mild degenerative changes of the spine. Nodular opacity right upper lung. IMPRESSION: * Nodular opacity in the right upper lung which would most commonly be infectious or inflammatory in a patient of this age but follow-up could be obtained to ensure that this appropriately resolves to exclude neoplastic nodule which would be unlikely unless the patient has a history of neoplasm. Electronically signed by: [place] MD (05/18/2021 11:32 PM) [id number] DICTATED AND SIGNED BY: S[place] KE[place] MD DATE: 05/18/21 7175 CC: SERGO THOMPSON MD; NON,STAFF ~[facility] [address] [address] IMAGING REPORT Signed PATIENT: TRIP COOK ACCOUNT: [id number] : 05/04/1963 LOCATION: ER AGE: 58 SEX: F EXAM STATUS: REG ER ORD. PHYSICIAN: SERGO THOMPSON MD REASON: OMNI 300,75ML IV.OMNI 240,30ML PO.PAIN.HX KIDNEY INFECTION PROCEDURE: CT ABD PELV W/ORAL&IV CONTRAST CT ABDOMEN+PELVIS W History: Reason: OMNI 300,75ML IV.OMNI 240,30ML PO.PAIN.HX KIDNEY INFECTION / Spl. Instructions: / History: Technique: After the administration of intravenous contrast, CT imaging was performed of the abdomen and pelvis. Multiplanar images are reviewed. Exposure: One or more of the following individualized dose reduction techniques were utilized for this examination: 1. Automated exposure control 2. Adjustment of the mA and/or kV according to patient size 3. Use of iterative reconstruction technique. Comparison: August 27, 2020 Findings: Lower chest: No consolidation or pleural effusion. Abdomen and pelvis: Right hepatic lobe hypodensities, unchanged compared to prior. The spleen, adrenal glands, and pancreas are remarkable. Prior cholecystectomy. Biliary ductal dilatation, within normal range for postcholecystectomy state. Patent portal vein. Left parapelvic renal cyst unchanged. No hydronephrosis. No renal calculus. Small right renal hypodensities, likely cysts. Decompressed urinary bladder. Appendix not well seen. No findings to suggest acute appendicitis. No evidence of bowel obstruction. Oral contrast opacifies to the level of the transverse colon. No pathologic lymphadenopathy. No ascites. Prior hysterectomy. Extensive atheromatous plaque throughout the nonaneurysmal abdominal aorta. Bones: Chronic left posterior rib fractures. Multilevel lumbar spondylosis. Impression: 1. No acute abdominal or pelvic pathology. Electronically signed by: Norman Harley DO (05/18/2021 11:35 PM) [facility] DICTATED AND SIGNED BY: NORMAN HARLEY DO DATE: 05/18/21 2328 CC: SERGO THOMPSON MD; KORTNEY CARLOS MD ~MTH0 0 Heart Score: C/O Chest Pain: Yes HEART Score for Chest Pain: HEART Score for Chest Pain Response (Comments) Value History Slighlty/Non-Suspicious 0 ECG Normal 0 Age < 45 0 Risk Factors 1 or 2 Risk Factors 1 Troponin < Normal Limit 0 Total 1 Risk Factors: Risk Factors: DM, Current or recent (<one month) smoker, HTN, HLP, family history of CAD, obesity. Risk Scores: Score 0 - 3: 2.5% MACE over next 6 weeks - Discharge Home Score 4 - 6: 20.3% MACE over next 6 weeks - Admit for Clinical Observation Score 7 - 10: 72.7% MACE over next 6 weeks - Early Invasive Strategies Course & Med Decision Making: Course & Med Decision Making Pertinent Labs and Imaging studies reviewed. (See chart for details) Attempting to get records 2030 hrs. Unable to receive records. Patient reduce her alcohol intake. Patient to keep follow-up at neurology. Patient take Tylenol and ibuprofen as needed for discomfort. Consider spinal tap. Consider further evaluation at neurology. If exacerbation of lower leg weakness occurs when exposed to heat, evaluate for MS. Take a multivitamin with folate. Explained to patient overall peripheral neuropathy may be related to her excessive alcohol use. Must follow up. Impression: 1. 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 Viral Syndrome + COVID Test on 05/15 ( Non - vaccinated) 3. Hx., of Alcohol Abuse- Tonight= 354 4. Elevated [place] 10, and Lymph 51 5. Elevated D-dimer 1.54 6. Elevated Alk. Phos. 130 7. 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 Departure Departure: Referrals: NON,STAFF (PCP) Scripts Fluticasone Propionate (Flonase Allergy Relief) 9.9 Ml [place].susp 2 SPRAYS MISSY DAILY PRN for bid for 30 Days, ML Prov: SERGO THOMPSON MD 05/19/21 Apixaban (ELIQUIS) 5 Mg Tablet 5 MG PO BID for dvt/pe prop, covid for 10 Days, #20 TAB Prov: SERGO THOMPSON MD 05/19/21 Cephalexin (KEFLEX) 750 Mg Capsule 500 MG PO TID for sinusitis for 14 Days, #40 CAP Prov: SERGO THOMPSON MD 05/19/21 Dragkyle Disclaimer This chart was dictated in whole or in part using Voice Recognition software in a busy, high-work load, and often noisy Emergency Department environment. It may contain unintended and wholly unrecognized errors or omissions. SERGO THOMPSON MD May 18, 2021 20:12
[2021-05-18] MEDS ORDERED: IV RINGERS SOLUTION,LACTATED 1,000 ML IV SCH (20:45)
[2021-05-18] MEDS ORDERED: IOHEXOL 350 MG/ML 100 ML VIAL. IV ONE (21:00)
[2021-05-18 21:10] LABS: BASO % 0 % (0-3); EOS % 1 % (0-3); HEMATOCRIT 42.2 % (36.0-47.0); HEMOGLOBIN 14.6 g/dL (12.0-15.5); LYMPH # 2.9 x10^3/uL (1.0-4.8); LYMPH % 51 % (24-48); MEAN CORPUSCULAR HEMOGLOBIN 33 pg (25-35); MEAN CORPUSCULAR HGB CONC 35 g/dL (31-37); MEAN CORPUSCULAR VOLUME 95 fL (79-100); MONO # 0.6 x10^3/uL (0.0-1.1); MONO % 10 % (0-9); NEUT # 2.1 x10^3uL (1.8-7.7); NEUT % 38 % (31-73); PLATELET COUNT 310 x10^3/uL (140-400); RED BLOOD COUNT 4.45 x10^6/uL (3.50-5.40); RED CELL DISTRIBUTION WIDTH 13.5 % (11.5-14.5); WHITE BLOOD COUNT 5.7 x10^3/uL (4.0-11.0)
[2021-05-18] MEDS ORDERED: CONTRAST GIVEN. MC PRN (21:15)
[2021-05-18 21:21] LABS: BILIRUBIN,URINE NEG (NEG); CLARITY,URINE CLEAR; COLOR,URINE STRAW; GLUCOSE,URINE NEG (NEG); NITRITE,URINE NEG (NEG); UROBILINOGEN,URINE 0.2 mg/dL (0.2 mg/dL)
[2021-05-18 21:22] LABS: BACTERIA,URINE 0 /HPF (0-FEW); RBC,URINE 0 /HPF (0-2); SQUAMOUS EPITHELIAL CELL,UR FEW /LPF; WBC,URINE 0 /HPF (0-4)
[2021-05-18 21:37] LABS: BARBITURATES NEG (NEG); BENZODIAZEPINES NEG (NEG); CANNABINOIDS NEG (NEG); COCAINE NEG (NEG); METHADONE NEG (NEG); OPIATES NEG (NEG); PHENCYCLIDINE NEG (NEG)
[2021-05-18 21:38] LABS: AMPHETAMINE/METHAMPHETAMINE NEG (NEG)
[2021-05-18 21:38] LABS: CALCIUM 8.5 mg/dL (8.5-10.1); CREATININE 0.6 mg/dL (0.6-1.0); GFR 113.8
[2021-05-18 21:49] LABS: ALBUMIN 3.4 g/dL (3.4-5.0); DIRECT BILIRUBIN 0.1 mg/dL (0.0-0.2); MAGNESIUM 2.1 mg/dL (1.8-2.4); TOTAL BILIRUBIN 0.3 mg/dL (0.2-1.0); TOTAL PROTEIN 8.5 g/dL (6.4-8.2)
--- NOTE | 2021-05-18 22:49 | EKG ---
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
--- NOTE | 2021-05-18 23:34 | RAD ---
INDICATION: Reason: cp / Spl. Instructions: / History: COMPARISON: None. FINDINGS: 2 view of chest obtained. Cardiac silhouette is unremarkable. Mild degenerative changes of the spine. Nodular opacity right upper lung. IMPRESSION: * Nodular opacity in the right upper lung which would most commonly be infectious or inflammatory in a patient of this age but follow-up could be obtained to ensure that this appropriately resolves to exclude neoplastic nodule which would be unlikely unless the patient has a history of neoplasm. Electronically signed by: Andrea Keene MD (05/18/2021 11:32 PM) [id number]
--- NOTE | 2021-05-18 23:58 | RAD ---
EXAM: CT HEAD WITHOUT CONTRAST. HISTORY: Facial and leg weakness, altered mental status. TECHNIQUE: Computed tomography of the head was performed without intravenous contrast. One or more of the following individualized dose reduction techniques were utilized for this examination: 1. Automated exposure control. 2. Adjustment of the mA and/or kV according to patient size. 3. Use of iterative reconstruction technique. COMPARISON: 05/01/2021. FINDINGS: There is no intracranial hemorrhage. Winkler-white differentiation is preserved. The ventricle s are normal in size and position. There are air-fluid levels throughout the visualized paranasal sinuses. The orbits are unremarkable. The temporal bones are unremarkable. The calvarium reveals no suspicious lesions. IMPRESSION: 1. No acute intracranial findings. 2. Diffuse acute appearing sinus disease. Electronically signed by: Josiah Lambert MD (05/18/2021 11:55 PM) [facility]
--- NOTE | 2021-05-19 00:01 | RAD ---
EXAM: CT ANGIOGRAPHY OF THE CHEST WITH AND WITHOUT CONTRAST. HISTORY: Weakness, altered mental status, COVID-19. TECHNIQUE: Computed tomographic angiography of the chest was performed before and after the intraveno us administration of iodinated contrast. 3-D maximum intensity projections were also performed. One o r more of the following individualized dose reduction techniques were utilized for this examination: 1. Automated exposure control. 2. Adjustment of the mA and/or kV according to patient size. 3. Use of iterative reconstruction technique. COMPARISON: None. FINDINGS: Images of the upper abdomen reveal at least mild diffuse hepatic steatosis. Bone windows re veal no suspicious lesions. Bilateral breast implants are noted. No pulmonary emboli are identified. There is no aortic dissection or aneurysm. There are no pathologically enlarged mediastinal or axillary lymph nodes. There is no pleural or gregory cardial effusion. The heart is not enlarged. Small region of consolidation within the right upper lobe posteriorly measure 1.9 x 1.1 cm. There is a minimal groundglass nodule in the right lower lobe on image 74 measuring 7 mm. Another in the left lower lobe measures 10 mm on image 78. No infiltrates elsewhere IMPRESSION: 1. No pulmonary embolism. 2. A few small ill-defined foci of consolidation or groundglass opacity are most likely inflammatory in the setting of COVID-19. These could be followed in 3 months to confirm resolution if there is per sistent concern. 3. Diffuse hepatic steatosis. Electronically signed by: Josiah Lambert MD (05/18/2021 11:59 PM) [facility]
[2021-05-19] MEDS ORDERED: APIXABAN 5 MG TABLET. PO STA (00:46)
[2021-05-19] MEDS ORDERED: cefTRIAXone SODIUM 1 GM VIAL ONE (00:51)
[2021-05-19] MEDS ORDERED: CEPH750C9 PO (00:56)
[2021-05-19 01:00] VITALS: BP 128/90
[2021-05-19] MEDS ORDERED: APIX5TAB3 PO (01:02)
[2021-05-19] MEDS ORDERED: FLUT9.9S NAS (01:02)
== END 2021-05-19 01:05 | disposition home or self-care (01) ==
LOC: ER 20:00
DX: G62.9 Polyneuropathy, unspecified (principal); B34.9 Viral infection, unspecified; J32.4 Chronic pansinusitis; F10.10 Alcohol abuse, uncomplicated; R79.1 Abnormal coagulation profile; R41.82 Altered mental status, unspecified
CPT/HCPCS: 36415; 70450; 71046; 71275; 80048; 80076; 80307; 81001; 81025; 82550; 83690; 83735; 83880; 84443; 84484; 84702; 85025; 85379; 85610; 85730; 86140; 86703; 93005; 96361; 96374; 99285; G0480; J0696; J7120; Q9967